=== PATIENT | female | born 1980 | race Caucasian/White ===

== ENCOUNTER 2016-11-22 21:43 | Emergency (ER) | payer MEDICAID, MEDICARE ==
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
--- OUTSIDE RECORDS SUMMARY | 2016-11-22 22:22 | XMS REPORT | Continuity of Care Document ---
:1980 Author Organization [facility] ([facility]) Address [place] [address] Phone [phone] Care Team Providers Name Role Phone Unavailable Primary Care Provider Unavailable Source Comments This disclosure is being made pursuant to the Care Everywhere program, applicable federal and state laws, and may not contain all informaitonavailable regarding this patient.[facility] ([facility]) Active Allergies and Adverse Reactions Not on File Current Medications Not on file Active Problems Not on file Social History Tobacco Use Types Packs/Day Years Used Date Never Assessed Plan of Care Health Maintenance Due Date Last Done Comments Hepatitis B Vaccine (1 of 3 - Primary Series) 1980 Tdap Vaccine 1989 Lipid Disorder Screening 01/26/1996 MMR Vaccine 01/26/1996 Td Vaccine 01/26/1996 Cervical Cancer Screening 01/26/2008 Influenza Vaccine: Seasonal (#1) 01/20/2016 Results from Last 3 Months Not on file
[2016-11-22 22:39] VITALS: BP 117/93
== END 2016-11-22 22:50 | disposition home or self-care (01) ==
LOC: ER 21:43
DX: M25.512 Pain in left shoulder (principal); Y04.2XXA Assault by strike against or bumped into by another person, initial encounter; Y93.89 Activity, other specified; Y92.9 Unspecified place or not applicable